=== PATIENT | male | born 1990 | race Caucasian/White ===

== ENCOUNTER 2018-05-28 10:27 | Emergency (ER) | payer MEDICAID ==
[2018-05-28] MEDS: ACETAMINOPHEN 325 MG TAB PO (11:42)
== END 2018-05-28 13:12 | disposition home or self-care (01) ==
LOC: FTE 10:27
DX: S01.01XA Laceration without foreign body of scalp, initial encounter (principal); R40.2412 Glasgow coma scale score 13-15, at arrival to emergency department; W20.8XXA Other cause of strike by thrown, projected or falling object, initial encounter; Y92.9 Unspecified place or not applicable
CPT/HCPCS: 12002; 99283-25

== ENCOUNTER 2018-05-30 16:26 | Emergency (ER) | payer MEDICAID | END 2018-05-30 16:59 | disposition home or self-care (01) | LOC: E/R 16:26 | DX: Z48.01 Encounter for change or removal of surgical wound dressing (principal) | CPT/HCPCS: 99281; Z7502 ==

== ENCOUNTER 2018-06-02 16:32 | Emergency (ER) | payer MEDICAID | END 2018-06-02 19:12 | disposition home or self-care (01) | LOC: FTE 16:32 | DX: Z48.02 Encounter for removal of sutures (principal) | CPT/HCPCS: 99281; Z7502 ==